=== PATIENT | female | born 1955 ===

== ENCOUNTER 2022-04-08 08:34 | Day surgery (SDC) | payer OTHER ==
[~2022-04-08] VITALS: Ht 152.4 cm; Wt 77.1 kg
[2022-04-08] MEDS ORDERED: diphenhydrAMINE 50 MG/ML VIAL ONE (09:09)
[2022-04-08] MEDS ORDERED: fentaNYL citrate 0.05 MG/ML VIAL ONE (09:10)
[2022-04-08] MEDS ORDERED: LIDOCAINE 2% 100 MG/5 ML UJET TP ONE (09:10)
[2022-04-08] MEDS ORDERED: MIDAZOLAM 5 MG/5 ML VIAL ONE (09:10)
[2022-04-08] MEDS ORDERED: MIDAZOLAM 2 MG/2 ML VIAL IVP ONE (12:20)
[2022-04-08] MEDS ORDERED: fentaNYL citrate 0.05 MG/ML VIAL IVP ONE (12:20)
== END 2022-04-08 10:35 | disposition home or self-care (01) ==
LOC: MMU 08:34 → MDS 08:34
PROVIDERS: ATTEND Internal Medicine Gastroenterology
DX: Z12.11 Encounter for screening for malignant neoplasm of colon (principal); Z86.010 Personal history of colon polyps; I10 Essential (primary) hypertension; E78.00 Pure hypercholesterolemia, unspecified; Z87.891 Personal history of nicotine dependence; Z79.82 Long term (current) use of aspirin; Z79.899 Other long term (current) drug therapy; Z20.822 Contact with and (suspected) exposure to COVID-19
CPT/HCPCS: 45378; 87426; J2250; J3010; J1200